=== PATIENT | male | born 1985 | race Two or more races ===

== ENCOUNTER 2016-10-19 19:05 | Emergency (ER) | payer OTHER ==
[~2016-10-19] VITALS: Ht 195.6 cm; Wt 88.5 kg
[2016-10-19 19:34] VITALS: BP 136/83
== END 2016-10-19 23:47 | disposition left against medical advice (07) ==
LOC: ER 19:07
DX: Z53.21 Procedure and treatment not carried out due to patient leaving prior to being seen by health care provider (principal)
CPT/HCPCS: A4606; Z7610